=== PATIENT | male | born 1965 | race Caucasian/White ===

== ENCOUNTER 2021-09-29 13:38 | Emergency (ER) | payer OTHER ==
[~2021-09-29] VITALS: Ht 175.3 cm; Wt 106.8 kg
[2021-09-29 17:02] LABS: BILIRUBIN,URINE LARGE (NEG); CLARITY,URINE CLEAR; NITRITE,URINE NEGATIVE (NEG); PH,URINE 6.5 (<5.0-8.0); PROTEIN,URINE 100 mg/dL (NEG-TRACE)
[2021-09-29 17:07] LABS: BACTERIA,URINE 0 /HPF (0-FEW); COLOR,URINE ORANGE; RBC,URINE 0 /HPF (0-2)
--- NOTE | 2021-09-29 17:10 | PHYS DOC ---
Past Medical History Past Medical History: Bipolar, Diabetes-Type II, High Cholesterol, Hypertension Past Surgical History: No Surgical History Smoking Status: Current Every Day Smoker Alcohol Use: Heavy Drug Use: None General Adult EDM: Chief Complaint: BLOOD IN URINE HPI: HPI: Patient is a 56-year-old male that presents today with orange-colored urine and coughing up blood. Patient states that over the last couple of months he has noticed his urine has become orange in nature, he states that he has increased his by mouth fluids throughout the day he said it is getting better but is not totally resolved. Patient states also that yesterday he had a coughing fit he said he coughed up a large amount of phlegm that had blood in it he states it had clots as well, he states that he has not had another episode like that since this time or even before this time. Patient states he does smoke on a daily basis patient states he drinks about a pint or so of vodka every day, he states he is cutting down on his alcohol intake at this time. Patient states he called his primary care physician and they advised him to come the emergency department for further evaluation of. Patient denies chest pain, shortness of breath, or fever and chills Review of Systems: Review of Systems: Constitutional: Denies fever or chills. [] Eyes: Denies change in visual acuity. [] HENT: Denies nasal congestion or sore throat. [] Respiratory: Coughing up blood [] Cardiovascular: Denies chest pain or edema. [] GI: Denies abdominal pain, nausea, vomiting, bloody stools or diarrhea. [] : [place]-colored urine Musculoskeletal: Denies back pain or joint pain. [] Integument: Denies rash. [] Neurologic: Denies headache, focal weakness or sensory changes. [] Endocrine: Denies polyuria or polydipsia. [] Lymphatic: Denies swollen glands. [] Psychiatric: Denies depression or anxiety. [] Heart Score: C/O Chest Pain: N/A Risk Factors: Risk Factors: DM, Current or recent (<one month) smoker, HTN, HLP, family history of CAD, obesity. Risk Scores: Score 0 - 3: 2.5% MACE over next 6 weeks - Discharge Home Score 4 - 6: 20.3% MACE over next 6 weeks - Admit for Clinical Observation Score 7 - 10: 72.7% MACE over next 6 weeks - Early Invasive Strategies Current Medications: Abilify Glipizide Metformin Lisinopril Zoloft Physical Exam: PE: Constitutional: Well developed, well nourished, no acute distress, non-toxic appearance. [] HENT: Normocephalic, atraumatic, bilateral external ears normal, oropharynx moist, no oral exudates, nose normal. [] Eyes: PERRLA, EOMI, conjunctiva yellow, no discharge. [] Neck: Normal range of motion, no tenderness, supple, no stridor. [] Cardiovascular:Heart rate regular rhythm, no murmur [] Lungs & Thorax: Bilateral breath sounds wheezes throughout diminished in the bases Abdomen: Bowel sounds normal, soft, no tenderness, no masses, no pulsatile masses. [] Skin: Warm, dry, no erythema, no rash. [] Back: No tenderness, no CVA tenderness. [] Extremities: No tenderness, no cyanosis, no clubbing, ROM intact, no edema, pedal pulses present [] Neurologic: Alert and oriented X 3, normal motor function, normal sensory function, no focal deficits noted. [] Psychologic: Affect normal, judgement normal, mood normal. [] Current Patient Data: Labs: Laboratory Tests Test 09/29/21 16:25 09/29/21 17:20 Urine Collection Type Unknown Urine Color [place] Urine Clarity Clear Urine pH 6.5 Urine Specific Josephine 1.010 Urine Protein 100 mg/dL Urine Glucose (UA) 100 mg/dL Urine Ketones (Stick) 15 mg/dL Urine Blood Negative Urine Nitrite Negative Urine Bilirubin Large Urine Urobilinogen Dipstick 4.0 mg/dL Urine Leukocyte Esterase Trace Urine RBC 0 /HPF Urine WBC 1-4 /HPF Urine Squamous Epithelial Cells Occ /LPF Urine Bacteria 0 /HPF Urine Mucus Slight /LPF White Blood Count 8.2 x10^3/uL Red Blood Count 4.45 x10^6/uL Hemoglobin 15.6 g/dL Hematocrit 44.3 % Mean Corpuscular Volume 100 fL Mean Corpuscular Hemoglobin 35 pg Mean Corpuscular Hemoglobin Concent 35 g/dL Red Cell Distribution Width 13.4 % Platelet Count 231 x10^3/uL Neutrophils (%) (Auto) 80 % Lymphocytes (%) (Auto) 11 % Monocytes (%) (Auto) 6 % Eosinophils (%) (Auto) 3 % Basophils (%) (Auto) 1 % Neutrophils # (Auto) 6.5 x10^3/uL Lymphocytes # (Auto) 0.9 x10^3/uL Monocytes # (Auto) 0.5 x10^3/uL Eosinophils # (Auto) 0.3 x10^3/uL Basophils # (Auto) 0.0 x10^3/uL Sodium Level 129 mmol/L Potassium Level 3.5 mmol/L Chloride Level 92 mmol/L Carbon Dioxide Level 29 mmol/L Anion Gap 8 Blood Urea Nitrogen 5 mg/dL Creatinine 0.7 mg/dL Estimated GFR (Cockcroft-Gault) 117.1 BUN/Creatinine Ratio 7 Glucose Level 242 mg/dL Calcium Level 8.3 mg/dL Total Bilirubin 6.3 mg/dL Direct Bilirubin 5.3 mg/dL Aspartate Amino Transf (AST/SGOT) 145 U/L Alanine Aminotransferase (ALT/SGPT) 194 U/L Alkaline Phosphatase 238 U/L Total Protein 7.0 g/dL Albumin 2.8 g/dL Albumin/Globulin Ratio 0.7 Lipase 189 U/L Ethyl Alcohol Level < 10 mg/dL SARS-CoV-2 Antigen (Rapid) Negative Current Medications Medications (Trade) Dose Ordered Sig/Cynthia Route PRN Reason Start Time Stop Time Status Last Admin Dose Admin Iohexol (Omnipaque 350 Mg/ml) 100 ml 1X ONCE IV 09/29/21 18:15 09/29/21 18:16 DC 09/29/21 18:26 Info (CONTRAST GIVEN -- Rx MONITORING) 1 each PRN DAILY PRN MC SEE COMMENTS 09/29/21 18:15 10/01/21 18:14 Vital Signs: Vital Signs Date Time Temp Pulse Resp B/P (MAP) Pulse Ox O2 Delivery O2 Flow Rate FiO2 09/29/21 14:05 99.5 95 20 154/80 (104) 98 Room Air 99.5 Vital Signs Date Time Temp Pulse Resp B/P (MAP) Pulse Ox O2 Delivery O2 Flow Rate FiO2 09/29/21 14:05 99.5 95 20 154/80 (104) 98 Room Air 99.5 EKG: EKG: [] Radiology/Procedures: Radiology/Procedures: REASON: cough PROCEDURE: CHEST AP ONLY Exam: Chest one view INDICATION: Cough TECHNIQUE: Frontal view of the chest Comparisons: None FINDINGS: The cardiomediastinal silhouette and pulmonary vessels are within normal limits. The lung and pleural spaces are clear. IMPRESSION: No acute cardiopulmonary process. Electronically signed by: Anayeli Mcmanus MD (09/29/2021 5:09 PM) [facility] REASON: blood in sputum, enlarged liver PROCEDURE: CT ANGIO CHEST W ABD PEL W/ CTA CHEST_ABDOMEN_AND PELVIS INDICATION: blood in sputum, enlarged liver Comparison: None. TECHNIQUE: Following the uneventful administration of a bolus of intravenous contrast, 100 mL Omnipaque 350, axial CT sections were obtained through the chest, abdomen, and pelvis. MIP images and multiplanar reconstructions were also obtained. PQRS compliance statement: One or more of the following individualized dose reduction techniques were utilized for this examination: 1. Automated exposure control 2. Adjustment of the mA and/or kV according to patient size 3. Use of iterative reconstruction technique FINDINGS: No pulmonary mass or consolidation. No abnormality of the central airways. The pleural spaces are normal. The visualized thyroid is normal in size and attenuation. No axillary or supraclavicular lymphadenopathy. No mediastinal, hilar or retrocrural lymphadenopathy. The heart and pericardium are within normal limits. The great vessels of the thorax are normal. Abdomen Findings: The visualized lung bases are clear. Liver measures 24 cm craniocaudad. Hepatic steatosis. The gallbladder, pancreas, and bilateral adrenal glands are normal. Splenomegaly. Symmetric renal enhancement. Nonobstructive left renal 3 mm calculus. There is no hydronephrosis. The visualized loops of small bowel are normal. Mild colonic diverticulosis There is no evidence of bowel obstruction. Appendix is normal. There is no free fluid. There is no mesenteric or retroperitoneal adenopathy. The abdominal aorta is normal in caliber. Pelvis Findings: Urinary bladder is normal. No pelvic free fluid. There is no pelvic or inguinal adenopathy. Degenerative changes of the spine. Small fat-containing inguinal hernias. IMPRESSION: 1. No pulmonary mass or consolidation. 2. Hepatic steatosis. Hepatosplenomegaly. 3. Mild colonic diverticulosis. 4. Nonobstructive left renal 3 mm calculus. Electronically signed by: Ta Quinn MD (09/29/2021 6:49 PM) [facility] [ ] Course & Med Decision Making: Course & Med Decision Making Pertinent Labs and Imaging studies reviewed. (See chart for details) 1915 wanted to speak to patient about results and the need for admission due to abnormal liver enzymes enlargement of liver, patient states that at this time he does not wish to be admitted he wishes to go home and follow-up with his primary care physician which is [facility] and the need for a gastrointestinal specialist referral. Instructed patient to have his primary care physician contact us for his medical records while here in the emergency department, patient also informed to return to the emergency department for any increased abdominal pain, he any yellowing of his eyes or skin, any nausea or vomiting diarrhea, or coughing up blood more often. Patient verbalized understanding of the return instructions patient is again signing out AGAINST MEDICAL ADVICE. Dr. Antoine was notified of the patient's status of going AGAINST MEDICAL ADVICE. Patient is alert and orientated x3, no nausea vomiting while in the department no hemoptysis while in the department. Yonatan Disclaimer: Yonatan Disclaimer: This electronic medical record was generated, in whole or in part, using a voice recognition dictation system. Departure Departure Impression: Primary Impression: Elevated liver enzymes Disposition: LEFT AGAINST MEDICAL ADVICE Condition: GUARDED ANTONETTE CABALLERO [employer] Sep 29, 2021 17:10
[2021-09-29 17:49] LABS: BASO % 1 % (0-3); EOS # 0.3 x10^3/uL (0.0-0.7); EOS % 3 % (0-3); HEMATOCRIT 44.3 % (39.0-53.0); HEMOGLOBIN 15.6 g/dL (13.0-17.5); LYMPH # 0.9 x10^3/uL (1.0-4.8); LYMPH % 11 % (24-48); MEAN CORPUSCULAR HEMOGLOBIN 35 pg (25-35); MEAN CORPUSCULAR HGB CONC 35 g/dL (31-37); MEAN CORPUSCULAR VOLUME 100 fL (79-100); MONO # 0.5 x10^3/uL (0.0-1.1); MONO % 6 % (0-9); NEUT # 6.5 x10^3/uL (1.8-7.7); NEUT % 80 % (31-73); PLATELET COUNT 231 x10^3/uL (140-400); RED BLOOD COUNT 4.45 x10^6/uL (4.30-5.70); RED CELL DISTRIBUTION WIDTH 13.4 % (11.5-14.5); WHITE BLOOD COUNT 8.2 x10^3/uL (4.0-11.0)
[2021-09-29 17:57] LABS: CALCIUM 8.3 mg/dL (8.5-10.1); CREATININE 0.7 mg/dL (0.7-1.3); GFR 117.1; POTASSIUM 3.5 mmol/L (3.5-5.1)
[2021-09-29 18:05] LABS: ALBUMIN 2.8 g/dL (3.4-5.0); ALBUMIN/GLOBULIN RATIO 0.7 (1.0-1.7); TOTAL BILIRUBIN 6.3 mg/dL (0.2-1.0)
[2021-09-29] MEDS ORDERED: IOHEXOL 350 MG/ML 100 ML VIAL. IV ONE (18:15)
[2021-09-29] MEDS ORDERED: CONTRAST GIVEN. MC PRN (18:15)
--- NOTE | 2021-09-29 18:51 | RAD ---
CTA CHEST_ABDOMEN_AND PELVIS INDICATION: blood in sputum, enlarged liver Comparison: None. TECHNIQUE: Following the uneventful administration of a bolus of intravenous contrast, 100 mL Omnipaq ue 350, axial CT sections were obtained through the chest, abdomen, and pelvis. MIP images and multip lanar reconstructions were also obtained. PQRS compliance statement: One or more of the following individualized dose reduction techniques were utilized for this examinat ion: 1. Automated exposure control 2. Adjustment of the mA and/or kV according to patient size 3. Use of iterative reconstruction technique FINDINGS: No pulmonary mass or consolidation. No abnormality of the central airways. The pleural spaces are normal. The visualized thyroid is normal in size and attenuation. No axillary or supraclavicular lymphadenopa thy. No mediastinal, hilar or retrocrural lymphadenopathy. The heart and pericardium are within roque l limits. The great vessels of the thorax are normal. Abdomen Findings: The visualized lung bases are clear. Liver measures 24 cm craniocaudad. Hepatic steatosis. The gallbladder, pancreas, and bilateral adrena l glands are normal. Splenomegaly. Symmetric renal enhancement. Nonobstructive left renal 3 mm calculus. There is no hydronephrosis. The visualized loops of small bowel are normal. Mild colonic diverticulosis There is no evidence of b owel obstruction. Appendix is normal. There is no free fluid. There is no mesenteric or retroperitoneal adenopathy. The abdominal aorta is normal in caliber. Pelvis Findings: Urinary bladder is normal. No pelvic free fluid. There is no pelvic or inguinal adenopathy. Degenerative changes of the spine. Small fat-containing inguinal hernias. IMPRESSION: 1. No pulmonary mass or consolidation. 2. Hepatic steatosis. Hepatosplenomegaly. 3. Mild colonic diverticulosis. 4. Nonobstructive left renal 3 mm calculus. Electronically signed by: Ta Quinn MD (09/29/2021 6:49 PM) [facility]
[2021-09-29 19:20] VITALS: BP 173/86
[2021-09-29 19:35] LABS: INFLUENZA A PATIENT NEGATIVE (NEGATIVE); INFLUENZA B PATIENT NEGATIVE (NEGATIVE)
[2021-09-30] MEDS ORDERED: METF-658 PO (16:11)
[2021-09-30] MEDS ORDERED: GLIP-24 PO (16:11)
[2021-09-30] MEDS ORDERED: ARIP30TA4 PO (16:11)
[2021-09-30] MEDS ORDERED: LISI20TA18 PO (16:11)
[2021-09-30] MEDS ORDERED: SERT50TA PO (16:11)
[2021-09-30] MEDS ORDERED: CLON0.5T PO (16:11)
== END 2021-09-29 19:20 | disposition left against medical advice (07) ==
LOC: ER 13:38
DX: R74.8 Abnormal levels of other serum enzymes (principal); F31.9 Bipolar disorder, unspecified; E11.9 Type 2 diabetes mellitus without complications; E78.00 Pure hypercholesterolemia, unspecified; I10 Essential (primary) hypertension; F17.200 Nicotine dependence, unspecified, uncomplicated; F10.20 Alcohol dependence, uncomplicated; Z20.822 Contact with and (suspected) exposure to COVID-19; Y90.0 Blood alcohol level of less than 20 mg/100 ml
CPT/HCPCS: 36415; 71045; 71275; 74177; 80053; 81001; 82248; 83690; 85025; 87086; 87426; 87804; 99285; G0480; Q9967; U0003; U0005